=== PATIENT | male | born 1965 | race African-American/Black ===

== ENCOUNTER 2018-02-19 22:33 | Emergency (ER) | payer SELFPAY ==
[~2018-02-19] VITALS: Ht 175.3 cm; Wt 72.6 kg
[~2018-02-19 22:33] MED LIST: NKM
[2018-02-19 22:34] VITALS: BP 116/68
[2018-02-19] MEDS ORDERED: Norco 5mg/325mg tab PO ONE (23:00)
[2018-02-20] MEDS ORDERED: IBUPROFEN600 MG ORAL (00:59)
[2018-02-20 01:50] VITALS: BP 166/80
[2018-02-20 02:00] VITALS: BP 166/80
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
--- NOTE | 2018-02-20 09:55 | Diagnostic Imaging Report ---
Indication: Pain, headache Technique: Continuous helical CT scanning of the head was performed utilizing automated exposure control without intravenous contrast material. Axial and coronal reconstructions were obtained. Comparison: None CT dose: Total DLP 1344.02 mGycm; CTDI vol 70.38 mGy Findings: There is no acute intracranial hemorrhage, mass effect or cortical edema. The ventricles, cisterns and sulci are within normal limits for age. Visualized mastoid air cells and paranasal sinuses are unremarkable. No depressed calvarial fracture. There is chronic appearing deformity of the left nasal bone, possibly secondary to old trauma. IMPRESSION: No evidence of acute intracranial hemorrhage, mass effect or cortical edema. No depressed calvarial fracture. This corresponds with the statrad preliminary report. The CT scanner at [facility] is accredited by the [employer] and the scans are performed using protocols designed to limit radiation exposure to as low as reasonably achievable to attain images of sufficient resolution adequate for diagnostic evaluation.
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
== END 2018-02-20 02:00 | disposition home or self-care (01) ==
LOC: EDBD 22:33 → EMR 23:15
DX: S09.90XA Unspecified injury of head, initial encounter (principal); M54.2 Cervicalgia; Y04.0XXA Assault by unarmed brawl or fight, initial encounter; Y07.9 Unspecified perpetrator of maltreatment and neglect; Y93.9 Activity, unspecified; Y92.9 Unspecified place or not applicable
CPT/HCPCS: 70450; 72125; 99284